=== PATIENT | male | born 1950 | race Two or more races ===

== ENCOUNTER 2024-07-27 13:43 | Emergency (ER) | payer MEDICARE, OTHER ==
[2024-07-27 14:00] VITALS: BP 139/80; PULSE 89
[2024-07-27 15:00] LABS: BASOPHILS ABSOLUTE AUTO 0.1 K/mm3 (0.0-0.2); BASOPHILS PERCENT AUTO 1.1 % (0.0-1.0); EOSINOPHILS ABSOLUTE AUTO 0.1 K/mm3 (0.0-0.4); EOSINOPHILS PERCENT AUTO 0.9 % (0.0-6.0); HEMATOCRIT 41.1 % (42.0-52.0); HEMOGLOBIN 13.6 gm/dl (14.0-18.0); IMMATURE GRAN ABSOLUTE AUTO 0.01 K/mm3 (0.00-0.05); IMMATURE GRAN PERCENT AUTO 0.2 % (0.0-0.4); LYMPHOCYTES ABSOLUTE AUTO 1.1 K/mm3 (1.0-4.8); LYMPHOCYTES PERCENT AUTO 19.5 % (24.0-44.0); MEAN CORPUSCULAR HEMOGLOBIN 29.5 pg (28.0-32.0); MEAN CORPUSCULAR HGB CONC 33.1 g/dl (32.0-36.0); MEAN CORPUSCULAR VOLUME 89.2 fl (83.0-99.0); MEAN PLATELET VOLUME 9.6 fl (9.4-12.4); MONOCYTES ABSOLUTE AUTO 0.3 K/mm3 (0.0-0.8); MONOCYTES PERCENT AUTO 5.6 % (0.0-8.0); NEUTROPHILS PERCENT AUTO 72.7 % (41.0-71.0); PLATELET COUNT,PLT 325 K/mm3 (150-400); RED BLOOD CELL COUNT 4.61 M/mm3 (4.52-5.90); WHITE BLOOD CELL COUNT,WBC 5.55 K/mm3 (3.9-11.3)
[2024-07-27 15:24] LABS: A/G RATIO 1.2 (1-2); ALANINE AMINOTRANSFERASE,ALT 16 U/L (16-63); ALBUMIN 3.9 g/dl (3.4-5.0); ALKALINE PHOSPHATASE 69 U/L (46-116); ANION GAP 14.1 (5-15); ASPARTATE AMNIOTRANSFERASE,AST 11 U/L (15-37); BILIRUBIN TOTAL 0.7 mg/dL (0.2-1.0); BLOOD UREA NITROGEN,BUN 16 mg/dL (7-18); CALCIUM 9.4 mg/dL (8.5-10.1); CARBON DIOXIDE,CO2 27 mEq/L (21-32); CHLORIDE,CL 105 mEq/L (98-107); EST CRCL DRUG DOSING (CG) 58.48 mL/min; ESTIMATED GFR 79 mL/min (>60); GLUCOSE RANDOM 112 mg/dL (70-99); POTASSIUM,K 4.1 mEq/L (3.5-5.1); PROTEIN TOTAL,TP 7.3 g/dl (6.4-8.2); SODIUM,NA 142 mEq/L (136-145); TROPONIN I HIGH SENSITIVITY < 4 pg/mL (<=76)
== END 2024-07-27 18:09 | disposition home or self-care (01) ==
LOC: JD.ED 13:43
DX: R07.1 Chest pain on breathing (principal); I10 Essential (primary) hypertension; Z79.899 Other long term (current) drug therapy
CPT/HCPCS: 36415; 71045; 71045-26; 73030-26-RT; 73030-RT; 80053; 83735; 84484; 85025; 93005; 93010; 99284; 99285

== ENCOUNTER 2025-03-10 07:00 | Day surgery (SDC) | payer MEDICARE ==
[2025-03-10] MEDS: Lactated Ringers 1,000 ML IV SCH (07:15)
[2025-03-10] MEDS: Pregabalin 25 MG Cap PO ONE (07:23)
[2025-03-10] MEDS: Acetaminophen 325 MG Tab PO ONE (07:23)
[2025-03-10] MEDS: oxyCODONE ER 10 MG TAB.ER PO ONE (07:23)
[2025-03-10] MEDS ORDERED: Midazolam 1 MG/ML 2 ML SDV ONE (07:37)
[2025-03-10] MEDS ORDERED: Propofol 200 MG/20 ML SDV ONE (07:37)
[2025-03-10] MEDS ORDERED: Lactated Ringers 1,000 ML ONE (07:37)
[2025-03-10] MEDS ORDERED: ceFAZolin 2 GM Vial ONE (07:38)
[2025-03-10] MEDS ORDERED: Phenylephrine 1% 10 MG/ML SDV ONE (08:59)
[2025-03-10] MEDS ORDERED: Ondansetron 4 MG/2 ML SDV IVPUSH PRN (09:12)
[2025-03-10] MEDS ORDERED: HYDROmorphone 0.5 MG/0.5 ML Syringe IVPUSH PRN (09:12)
[2025-03-10] MEDS ORDERED: fentaNYL 100 MCG/2 ML SDV IVPUSH PRN (09:12)
[2025-03-10] MEDS: Morphine 8 MG, EPINEPHrine 0.3 MG, Cefuroxime 750 MG, Ketorolac 30 MG, Sodium Chloride ... PRN (09:26)
[2025-03-10] MEDS: VANCOmycin 1 GM SDV ONE (09:27)
[2025-03-10] MEDS: Tranexamic Acid 1,000 MG/10 ML Vial ONE (09:27)
[2025-03-10] MEDS ORDERED: oxyCODONE 5 MG Tab PO PRN (10:12)
[2025-03-10] MEDS: Acetaminophen/Codeine 300-30 MG Tab PO PRN (11:45)
[2025-03-10 12:15] VITALS: BP 137/56; PULSE 86
== END 2025-03-10 13:30 | disposition home or self-care (01) ==
LOC: JD.SDS 07:00
PROVIDERS: ATTEND Orthopaedic Surgery
DX: M16.11 Unilateral primary osteoarthritis, right hip (principal); E78.5 Hyperlipidemia, unspecified; N40.0 Benign prostatic hyperplasia without lower urinary tract symptoms; Z79.899 Other long term (current) drug therapy; Z91.010 Allergy to peanuts; I10 Essential (primary) hypertension
CPT/HCPCS: 0055T; 27130; 36415; 73501; 86850; 86900; 86901; 97116; 97161; 97530; A9270; C1713; C1776; J0171; J0690; J0697; J1885; J2250; J2272; J2371; J2704; J7120; J3490